=== PATIENT | male | born 1965 | race Two or more races ===

== ENCOUNTER 2018-10-30 13:36 | Emergency (ER) | payer OTHER ==
[~2018-10-30] VITALS: Ht 170.2 cm; Wt 80.7 kg
--- NOTE | 2018-10-30 14:18 | Emergency Room Report ---
History of Present Illness General Chief Complaint: Lower Extremity Injury Source: Patient Present Illness HPI [id number] male with no significant past medical history here complaining of left ankle pain that has started 6 months ago however has been excruciating and 10 out of 10 in the past few days. Patient reports an old fracture and dislocation in the exact location of pain. Patient is on his feet most of the time as his job requires him to push heavy objects. Denies pain radiation, has not taken any medication for pain, denies tingling and numbness. He further denies any recent injury to the ankle.denies cp, sob, palp, VENTURA, dizziness, Allergies: Coded Allergies: No Known Allergies (Unverified , 10/30/18) Patient History Past Medical History: see triage record Past Surgical History: unable to obtain Pertinent Family History: none Immunizations: UTD Reviewed Nursing Documentation: PMH: Agreed; PSxH: Agreed Review of Systems All Other Systems: negative except mentioned in HPI Physical Exam Vital Signs Date Time Temp Pulse Resp B/P (MAP) Pulse Ox O2 Delivery O2 Flow Rate FiO2 10/30/18 13:40 98.2 94 17 132/84 98 Room Air Sp02 EP Interpretation: reviewed, normal General Appearance: normal inspection, well appearing, no apparent distress, GCS 15, non-toxic Head: normocephalic, atraumatic Eyes: bilateral eye normal inspection, bilateral eye PERRL ENT: normal ENT inspection, normal pharynx Neck: normal inspection, full range of motion, supple Respiratory: normal inspection, lungs clear, no rhonchi, no wheezing Cardiovascular #1: normal inspection, no edema, no gallop, no JVD, no murmur Cardiovascular #2: 2+ dorsalis pedis (R), 2+ dorsalis pedis (L) Gastrointestinal: normal inspection, non tender, soft Rectal: deferred Genitourinary: deferred Musculoskeletal: back normal, digits/nails normal, gait/station normal, normal range of motion, swelling - left ankle Neurologic: normal inspection, alert, oriented x3, responsive, 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 Zapata Diagnostic Impression: Primary Impression: Left ankle strain Additional Impression: Osteoarthritis ER Course [id number] male with no significant past medical history here complaining of left ankle pain that has started 6 months ago however has been excruciating and 10 out of 10 in the past few days. Patient reports an old fracture and dislocation in the exact location of pain. Patient is on his feet most of the time as his job requires him to push heavy objects. Denies pain radiation, has not taken any medication for pain, denies tingling and numbness. He further denies any recent injury to the ankle.denies cp, sob, palp, VENTURA, dizziness, Ddx considered but are not limited to ankle sprain, left ankle strain, contusion to the left ankle Vital signs: are WNL, pt. is afebrile H&PE are most consistent with osteophytes, left ankle strain ORDERS: x-ray of left ankle, Naproxen ED INTERVENTIONS: None required at this time. DISCHARGE: At this time pt. is stable for d/c to home. Will provide printed patient care instructions, and any necessary prescriptions. Care plan and follow up instructions have been discussed with the patient prior to discharge. pt keeps screeming and asking for something stronger as he is already taking Naproxen for shoulder pain and is not helping him. he keeps asking for injection of pain medication. pt is explained that he has chronic pain, may be needing MRI and needs to follow up with pcp. pt says he doesnt have a pcp and does not want to pay to go to one. he has been offered time off from work but refuses to take time off. pt keeps coming back to provider's room asking for a strong pain medication. CURES was done. Other X-Ray Diagnostic Results Other X-Ray Diagnostic Results : X-Ray ordered: left ankle # of Views/Limited Vs Complete: 2 View Indication: Swelling EP Interpretation: Yes PA Xray: Interpretation reviewed, by supervising MD, and agrees with findings. Interpretation: no dislocation, no soft tissue swelling, no fractures Impression: No acute disease Electronically Signed by: Prashanth HARTMAN Scribchari Text EXAM: XR Left Ankle Complete, 3 or More Views CLINICAL HISTORY: PAIN TECHNIQUE: Frontal, lateral and oblique views of the left ankle. COMPARISON: No relevant prior studies available. FINDINGS: Bones/joints: No visible fracture or dislocation. Moderate degenerative joint space loss and marginal osteophytes throughout the ankle joint. Soft tissues: Unremarkable. No radiodense foreign bodies. No soft tissue gas lucencies. IMPRESSION: 1. No visible fracture or dislocation. 2. Moderate degenerative joint space loss and marginal osteophytes throughout the ankle joint. Last Vital Signs Date Time Temp Pulse Resp B/P (MAP) Pulse Ox O2 Delivery O2 Flow Rate FiO2 10/30/18 13:40 98.2 94 17 132/84 98 Room Air Disposition: HOME, SELF-CARE Condition: Stable Scripts Naproxen* (NAPROXEN*) 500 Mg Tablet 500 MG ORAL TWICE A DAY, #20 TAB Prov: Prashanth Moreno 10/30/18 Patient Instructions: Ankle Pain, Osteoarthritis Additional Instructions: follow visual primary care provider for further management's of urine left ankle strain and arthritis panel Prashanth Moreno Oct 30, 2018 14:18
--- NOTE | 2018-10-30 15:10 | Diagnostic Imaging Report ---
EXAM: XR Left Ankle Complete, 3 or More Views CLINICAL HISTORY: PAIN TECHNIQUE: Frontal, lateral and oblique views of the left ankle. COMPARISON: No relevant prior studies available. FINDINGS: Bones/joints: No visible fracture or dislocation. Moderate degenerative joint space loss and marginal osteophytes throughout the ankle joint. Soft tissues: Unremarkable. No radiodense foreign bodies. No soft tissue gas lucencies. IMPRESSION: 1. No visible fracture or dislocation. 2. Moderate degenerative joint space loss and marginal osteophytes throughout the ankle joint.
[2018-10-30] MEDS ORDERED: NAPROXEN500 M2 ORAL (15:16)
[2018-10-30 16:21] VITALS: BP 132/84
== END 2018-10-30 14:00 | disposition home or self-care (01) ==
LOC: EMR 14:00
DX: S96.912A Strain of unspecified muscle and tendon at ankle and foot level, left foot, initial encounter (principal); X58.XXXA Exposure to other specified factors, initial encounter; Y92.9 Unspecified place or not applicable; M19.072 Primary osteoarthritis, left ankle and foot
CPT/HCPCS: 99283